=== PATIENT | male | born 1965 | race Caucasian/White ===

== ENCOUNTER 2017-08-29 11:15 | Outpatient (CLI) | payer OTHER | END 2017-08-29 17:00 | disposition home or self-care (01) | LOC: RAD 11:15 | DX: M24.474 Recurrent dislocation, right foot (principal); M24.475 Recurrent dislocation, left foot ==

== ENCOUNTER 2019-06-10 07:29 | Outpatient (CLI) | payer OTHER | END 2019-06-10 13:49 | disposition home or self-care (01) | LOC: MRI 07:29 | DX: M54.2 Cervicalgia (principal) | CPT/HCPCS: 72141 ==

== ENCOUNTER 2019-07-15 07:39 | Outpatient (CLI) | payer OTHER | END 2019-07-15 14:50 | disposition home or self-care (01) | LOC: RAD 07:39 | DX: M19.072 Primary osteoarthritis, left ankle and foot (principal) ==

== ENCOUNTER → 2020-08-19 | Outpatient (CLI) | payer OTHER | END | disposition home or self-care (01) | LOC: RAD 10:42 | PROVIDERS: ATTEND Podiatrist | DX: M77.32 Calcaneal spur, left foot (principal) ==

== ENCOUNTER 2021-03-11 09:53 | Outpatient (CLI) | payer OTHER | END 2021-03-11 09:58 | disposition home or self-care (01) | LOC: RAD 09:53 | PROVIDERS: ATTEND Podiatrist | DX: M79.672 Pain in left foot (principal); S93.602A Unspecified sprain of left foot, initial encounter ==

== ENCOUNTER 2021-07-21 06:17 | Outpatient (CLI) | payer OTHER | END 2021-07-21 06:30 | disposition home or self-care (01) | LOC: MRI 06:17 | PROVIDERS: ATTEND Orthopaedic Surgery Orthopaedic Trauma | DX: S83.212A Bucket-handle tear of medial meniscus, current injury, left knee, initial encounter (principal); M25.562 Pain in left knee | CPT/HCPCS: 73721 ==

== ENCOUNTER 2021-09-24 06:31 | Outpatient (CLI) | payer OTHER | END 2021-09-24 07:00 | disposition home or self-care (01) | LOC: RAD 06:31 | PROVIDERS: ATTEND Orthopaedic Surgery Orthopaedic Trauma | DX: I10 Essential (primary) hypertension (principal); Z01.811 Encounter for preprocedural respiratory examination ==